=== PATIENT | female | born 1980 | race Caucasian/White ===

== ENCOUNTER 2017-06-28 17:03 | Inpatient (IN) | payer OTHER ==
[2017-06-28 20:41] LABS: Hematocrit 36 % (35-47); Hemoglobin 12.2 g/dl (12.0-16.0); Mean Corpuscular HGB Conc 34 g/dl (31-36); Mean Corpuscular Hemoglobin 33 pg (27-31); Mean Corpuscular Volume 98 fL (80-97); Mean Platelet Volume 9 um3 (7.4-10.4); Red Cell Distribution Width 13 % (10.5-15); White Blood Count 12.6 10^3/ul (3.5-10.8)
[2017-06-28] MEDS ORDERED: Oxytocin in LR* 20 UNITS/1,000 ML BAG IVPB ONE (20:42)
[2017-06-28 20:47] LABS: Add Diff/Slide Review? Slide Review Added; Comments Flag Yes
[2017-06-28] MEDS ORDERED: Oxytocin in LR* 20 UNITS/1,000 ML BAG IVPB SCH (21:00)
[2017-06-28] MEDS ORDERED: OBEPIDURAL* 250 ML ONE (22:12)
[2017-06-28] MEDS ORDERED: Sodium Citrate/Citric Acid* 15 ML UDC PO PRN (22:59)
[2017-06-28] MEDS ORDERED: EPHEDrine (Pressors)* 50 MG/ML VIAL IV PUSH PRN ×2 (22:59)
[2017-06-28] MEDS ORDERED: Phenylephrine IV* 40 MCG/ML 10 ML SYRINGE IV PUSH PRN ×2 (22:59)
[2017-06-28] MEDS ORDERED: Famotidine TAB* 20 MG PO PRN (22:59)
[2017-06-28] MEDS ORDERED: OBEPIDURAL* 250 ML EPIDURAL SCH (23:00)
[2017-06-29] MEDS ORDERED: Acetaminophen TAB* 325 MG PO PRN (01:59)
[2017-06-29] MEDS ORDERED: Witch Hazel PAD* JAR TOPICAL PRN (01:59)
[2017-06-29] MEDS ORDERED: oxyCODONE/Acetamin 5/325 MG* TAB PO PRN (01:59)
[2017-06-29] MEDS ORDERED: Dibucaine 1% 28.35 GM TUBE PR PRN (01:59)
[2017-06-29] MEDS ORDERED: Glycerin ADULT SUPP PR PRN (01:59)
[2017-06-29] MEDS ORDERED: Zolpidem TAB* 5 MG PO PRN (01:59)
[2017-06-29] MEDS: Ibuprofen TAB* 600 MG PO PRN ×4 (03:17→21:30)
[2017-06-29] MEDS: Levothyroxine TAB* 75 MCG TAB PO SCH (06:22)
[2017-06-29] MEDS ORDERED: Simethicone CHEW TAB* 80 MG PO SCH (08:30)
[2017-06-29] MEDS: Docusate CAP* 100 MG PO SCH ×3 (09:08→21:30)
--- NOTE | 2017-06-29 20:20 | PTEDU ---
Patient Name: MICHAEL IRELAND MICHAEL IRELAND selected video: Follow Me Mum: The to Successful to view on at 8:20:13 PM from [email or web address]
[2017-06-30] MEDS: Ibuprofen TAB* 600 MG PO PRN (03:50)
[2017-06-30 05:42] LABS: Hematocrit 33 % (35-47); Hemoglobin 11.2 g/dl (12.0-16.0); Mean Corpuscular HGB Conc 34 g/dl (31-36); Mean Corpuscular Hemoglobin 33 pg (27-31); Mean Corpuscular Volume 98 fL (80-97); Mean Platelet Volume 9 um3 (7.4-10.4); Red Blood Count 3.36 10^6/ul (4.0-5.4); Red Cell Distribution Width 13 % (10.5-15); White Blood Count 8.5 10^3/ul (3.5-10.8)
[2017-06-30 05:43] LABS: Add Diff/Slide Review? Slide Review Added; Comments Flag Yes
[2017-06-30] MEDS: Levothyroxine TAB* 75 MCG TAB PO SCH (05:58)
[2017-06-30 06:07] LABS: Eosinophils % 3 % (0-6); Immature Granulocytes 8 % (0-9); Neutrophil % 54 % (38-83); RBC Morphology Normal (Normal)
[2017-06-30] MEDS ORDERED: Ferrous Gluconate TAB* 324 MG TAB PO SCH (09:00)
[2017-06-30] MEDS: Docusate CAP* 100 MG PO SCH ×3 (09:40→21:49)
--- NOTE | 2017-06-30 12:08 | PTEDU ---
Patient Name: MICHAEL IRELAND MICHAEL IRELAND selected video: Never Ever Shake a Baby to view on 06/30/2017 at 12:08:02 PM [email or web address]
[2017-07-01 07:53] VITALS: BP 106/58
[2017-07-01] MEDS: Levothyroxine TAB* 75 MCG TAB PO SCH (09:47)
[2017-07-01] MEDS: Docusate CAP* 100 MG PO SCH (09:47)
== END 2017-07-01 10:49 | disposition home or self-care (01) | DRG 775 ==
LOC: MCHOBOUT 17:03 → MCHOB 18:33
PROVIDERS: ADMIT Obstetrics & Gynecology; ATTEND Obstetrics & Gynecology
PROC: 4A1HX4Z Monitoring of Products of Conception, Cardiac Electrical Activity, External Approach (ICD-10-PCS; principal; 2017-06-28)
PROC: 10E0XZZ Delivery of Products of Conception, External Approach (ICD-10-PCS; 2017-06-28)
PROC: 0KQM0ZZ Repair Perineum Muscle, Open Approach (ICD-10-PCS; 2017-06-28)
DX: O99.284 Endocrine, nutritional and metabolic diseases complicating childbirth (principal); E03.9 Hypothyroidism, unspecified; O34.211 Maternal care for low transverse scar from previous cesarean delivery; O70.1 Second degree perineal laceration during delivery; Z88.0 Allergy status to penicillin; Z3A.39 39 weeks gestation of pregnancy; Z37.0 Single live birth
CPT/HCPCS: 36415; 85025; 86850; 86900; 86901; A9270-GY